=== PATIENT | male | born 1990 | race Caucasian/White ===

== ENCOUNTER 2017-03-17 14:28 | Emergency (ER) | payer SELFPAY ==
[2017-03-17 14:41] VITALS: BP 141/88
--- NOTE | 2017-03-17 15:45 | UC ---
UC General HPI - HPI Summary HPI Summary: Cough, body aches chills for a few days, - History of Current Complaint Chief Complaint: UCGeneralIllness Stated Complaint: COUGH BODYACHES Time Seen by Provider: 03/17/17 15:44 Hx Obtained From: Patient Onset/Duration: Gradual Onset, Lasting Days - 3, Still Present Timing: Constant Onset Severity: Moderate Current Severity: Moderate Associated Signs & Symptoms: Positive: Cough - Allergy/Home Medications Allergies/Adverse Reactions: Allergies Allergy/AdvReac Type Severity Reaction Status Date / Time No Known Allergies Allergy Verified 02/09/16 10:05 PMH/Surg Hx/FS Hx/Imm Hx Previously Healthy: Yes - Surgical History Surgical History: None - Family History Known Family History: Positive: Respiratory Disease - Asthma Negative: Cardiac Disease, Hypertension, Diabetes - Social History Occupation: Employed Full-time - elder inpatient care manager rn Lives: With Family Alcohol Use: None Alcohol Amount: States he stopped drinking in mid-2015 Substance Use Type: None Smoking Status (MU): Never Smoked Tobacco - Immunization History Most Recent Influenza Vaccination: declines Review of Systems Constitutional: Chills, Fatigue Skin: Negative Eyes: Negative ENT: Negative Respiratory: Cough Cardiovascular: Negative Gastrointestinal: Negative Genitourinary: Negative Motor: Negative Neurovascular: Negative Musculoskeletal: Arthralgia Neurological: Negative Psychological: Negative Is Patient Immunocompromised?: No All Other Systems Reviewed And Are Negative: Yes Physical Exam Triage Information Reviewed: Yes Appearance: Well-Appearing, No Pain Distress, Obese Vital Signs: Initial Vital Signs Temp 99.5 F 03/17/17 14:35 Pulse 119 03/17/17 14:35 Resp 24 03/17/17 14:35 BP 141/88 03/17/17 14:35 Pulse Ox 96 03/17/17 14:35 Vital Signs Reviewed: Yes Eye Exam: Normal Eyes: Positive: Conjunctiva Clear ENT Exam: Normal ENT: Positive: Normal ENT inspection, Hearing grossly normal, Pharynx normal, Nasal congestion, TMs normal, Uvula midline. Negative: Tonsillar swelling, Tonsillar exudate, Trismus, Muffled voice, Hoarse voice, Sinus tenderness Dental Exam: Normal Neck exam: Normal Neck: Positive: Supple, Nontender, No Lymphadenopathy Respiratory Exam: Normal Respiratory: Positive: Chest non-tender, Lungs clear, Normal breath sounds, No respiratory distress, No accessory muscle use Cardiovascular Exam: Normal Cardiovascular: Positive: No Murmur, Pulses Normal, Brisk Capillary Refill, Tachycardia Musculoskeletal Exam: Normal Musculoskeletal: Positive: Strength Intact, ROM Intact, No Edema Neurological Exam: Normal Neurological: Positive: Alert, Muscle Tone Normal Psychological Exam: Normal Skin Exam: Normal Diagnostics - Laboratory Diagnostic Studies Completed/Ordered: Influenza A/B (-) Course/Dx - Course Course Of Treatment: rest increase fluids, albuterol, tessalon, zithromax, follow with pcp - Differential Dx - Multi-Symptom Provider Diagnoses: Elevated blood pressure withour dx of hypertension, Bronchitis Discharge - Discharge Plan Condition: Stable Disposition: HOME Prescriptions: Albuterol HFA INHALER* [Ventolin HFA Inhaler*] 2 puff INH Q6H PRN #1 mdi PRN Reason: cough chest tightness Azithromycin TAB* [Zithromax TAB (Z-ALYSSA) 250 mg #6 tabs] 2 tab PO .TODAY, THEN 1 DAILY #1 alyssa Benzonatate [TESSALON 200 MG CAP] 200 mg PO TID PRN #30 cap PRN Reason: Cough Patient Education Materials: How to Use a Metered-Dose Inhaler (ED), Acute Bronchitis (ED), DASH Eating Plan (ED), Hypertension (ED) Forms: *Work Release Referrals: [facility] [Outside] - 2 Weeks
== END 2017-03-17 16:47 | disposition home or self-care (01) ==
LOC: UCEAST 14:28
DX: J40 Bronchitis, not specified as acute or chronic (principal); R03.0 Elevated blood-pressure reading, without diagnosis of hypertension; E66.9 Obesity, unspecified
CPT/HCPCS: 87502; 99212; G0463